=== PATIENT | male | born 2000 | race American Indian/Alaskan Native ===

== ENCOUNTER 2019-09-09 23:27 | Emergency (ER) | payer MEDICAID ==
[~2019-09-09] VITALS: Ht 157.5 cm; Wt 45.4 kg
[2019-09-09 23:44] VITALS: BP 107/56
== END 2019-09-10 01:04 | disposition left against medical advice (07) ==
LOC: ER 23:27
DX: R07.89 Other chest pain (principal); Z53.21 Procedure and treatment not carried out due to patient leaving prior to being seen by health care provider